=== PATIENT | male | born 1995 | race Hispanic/Latino ===

== ENCOUNTER 2018-02-25 12:51 | Emergency (ER) | payer BC ==
[~2018-02-25] VITALS: Ht 172.7 cm; Wt 70.3 kg
[2018-02-25 13:00] VITALS: TEMP 98.1
[2018-02-25 15:12] VITALS: BP 121/74
== END 2018-02-25 15:13 | disposition home or self-care (01) ==
LOC: ED 12:51
DX: S39.012A Strain of muscle, fascia and tendon of lower back, initial encounter (principal); X50.0XXA Overexertion from strenuous movement or load, initial encounter; Y92.39 Other specified sports and athletic area as the place of occurrence of the external cause
CPT/HCPCS: 96372; 99283; J1885

== ENCOUNTER 2020-10-07 16:02 | Outpatient (CLI) | payer BC | END 2020-10-07 21:05 | disposition home or self-care (01) | LOC: CT 16:02 | PROVIDERS: ATTEND Nurse Practitioner Family | DX: J01.91 Acute recurrent sinusitis, unspecified (principal) ==

== ENCOUNTER 2022-04-14 08:30 | Outpatient (CLI) | payer BC | END 2022-04-14 20:56 | disposition home or self-care (01) | LOC: US 08:30 | PROVIDERS: ATTEND Nurse Practitioner Family | DX: R74.8 Abnormal levels of other serum enzymes (principal) ==